=== PATIENT | male | born 1965 | race Caucasian/White ===

== ENCOUNTER 2017-01-13 16:21 | Emergency (ER) | payer OTHER ==
[2017-01-13 17:09] LABS: #Basophils 0.1 thou/uL (0.0-0.2); #Eosinphils 0.1 thou/uL (0.0-0.7); #Lymphocytes 2.3 thou/uL (1.20-3.40); #Monocytes 0.6 thou/uL (0.11-0.59); #Neutrophils 4.3 thou/uL (1.40-6.50); %Basophils 1.5 % (0.0-1.0); %Eosinophils 1.6 % (0.0-10.0); %Monocytes 8.1 % (0.0-10.0); %Neutrophils 57.7 % (42.0-75.0); Hemoglobin 15.6 g/dL (14.0-18.0); Mean Corpuscular HGB CONC 33.4 g/dL (32.0-36.0); Mean Corpuscular Hemoglobin 28.8 pg (27.0-31.0); Mean Corpuscular Volume 86.4 fl (80.0-94.0); Mean Platelet Volume 6.8 fL (7.4-10.4); Platelet Count 311 thou/uL (130-400); White Blood Cell (WBC) Count 7.5 thou/uL (4.8-10.8)
--- NOTE | 2017-01-13 17:17 | RAD ---
PORTABLE CHEST: Comparison: 12-25-15 History: Chest pain, dizziness. FINDINGS: Heart size and mediastinum are within normal limits. The lungs are clear of infiltrates. No signific ant bony findings. IMPRESSION: No active intrathoracic disease. POS: [id number]
[2017-01-13 17:37] LABS: ALT (SGPT) 37 U/L (8-55); AST (SGOT) 23 U/L (5-34); Albumin 4.1 g/dL (3.5-5.0); Alkaline Phosphatase 85 U/L (40-150); Anion Gap 16 mmol/L (10-20); BUN (Urea Nitrogen) 12 mg/dL (8.4-25.7); Bilirubin, Total 1.4 mg/dL (0.2-1.2); CK (CPK) 123 U/L (30-200); CKMB 1.1 ng/mL (0-6.6); Calc. Creatinine Clearance 0 mL/min (70-130); Calcium 9.5 mg/dL (7.8-10.44); Carbon Dioxide 22 mmol/L (22-29); Chloride 103 mmol/L (98-107); Estimated GFR-MDRD 72; Globulin 3.5 g/dL (2.4-3.5); Glucose 282 mg/dL (70-105); Lipase 11 U/L (8-78); Potassium 3.9 mmol/L (3.5-5.1); Protein, Total 7.6 g/dL (6.0-8.3); Sodium 137 mmol/L (136-145); Troponin I 0.016 ng/mL (< 0.028)
== END 2017-01-13 18:30 | disposition left against medical advice (07) ==
LOC: NAV ERS 16:21
DX: R07.2 Precordial pain (principal); J44.9 Chronic obstructive pulmonary disease, unspecified; I25.10 Atherosclerotic heart disease of native coronary artery without angina pectoris; I10 Essential (primary) hypertension; E11.9 Type 2 diabetes mellitus without complications; I25.2 Old myocardial infarction; Z79.2 Long term (current) use of antibiotics; Z79.899 Other long term (current) drug therapy; Z79.82 Long term (current) use of aspirin; Z79.4 Long term (current) use of insulin
CPT/HCPCS: 36415; 71010; 80053; 82550; 82553; 83690; 84484; 85025; 93005; 94760